=== PATIENT | male | born 2000 | race Hispanic/Latino ===

== ENCOUNTER 2018-03-04 03:13 | Emergency (ER) | payer OTHER, SELFPAY | END 2018-03-04 04:04 | disposition home or self-care (01) | LOC: MADERS 03:13 | DX: S39.012A Strain of muscle, fascia and tendon of lower back, initial encounter (principal); S66.912A Strain of unspecified muscle, fascia and tendon at wrist and hand level, left hand, initial encounter; V69.9XXA Occupant (driver) (passenger) of heavy transport vehicle injured in unspecified traffic accident, initial encounter | CPT/HCPCS: 99283 ==

== ENCOUNTER 2021-11-22 08:34 | Emergency (ER) | payer OTHER, SELFPAY ==
[~2021-11-22 08:34] MED LIST: Sodium Chloride 0.9% 1,000 ML BAG ONE; Sodium Chloride 0.9% 100 ML BAG ONE
[2021-11-22 09:17] LABS: #Basophils 0.1 thou/uL (0.0-0.2); #Eosinphils 0.1 thou/uL (0.0-0.7); #Lymphocytes 2.7 thou/uL (1.20-3.40); #Monocytes 0.5 thou/uL (0.11-0.59); #Neutrophils 3.9 thou/uL (1.40-6.50); %Basophils 1.6 % (0.0-1.0); %Eosinophils 1.2 % (0.0-10.0); %Monocytes 6.5 % (0.0-10.0); %Neutrophils 53.7 % (42.0-75.0); Hemoglobin 15.4 g/dL (14.0-18.0); Mean Corpuscular HGB CONC 32.7 g/dL (32.0-36.0); Mean Corpuscular Hemoglobin 27.2 pg (27.0-31.0); Mean Corpuscular Volume 83.4 fL (78.0-98.0); Mean Platelet Volume 6.7 fL (7.4-10.4); Platelet Count 366 thou/uL (130-400); RBC Distribution Width 11.2 % (11.5-14.5); Red Blood Cell (RBC) Count 5.66 mill/uL (4.70-6.10); White Blood Cell (WBC) Count 7.3 thou/uL (4.8-10.8)
[2021-11-22 09:37] LABS: ALT (SGPT) 37 U/L (8-55); AST (SGOT) 22 U/L (5-34); Albumin 4.7 g/dL (3.5-5.0); Alkaline Phosphatase 103 U/L (40-110); Anion Gap 14 mmol/L (10-20); BUN (Urea Nitrogen) 17 mg/dL (8.9-20.6); Bilirubin, Total 0.7 mg/dL (0.2-1.2); Calc. Creatinine Clearance 0 mL/min (70-130); Calcium 9.6 mg/dL (7.8-10.44); Carbon Dioxide 25 mmol/L (22-29); Chloride 103 mmol/L (98-107); Glucose 95 mg/dL (70-105); Magnesium 1.8 mg/dL (1.6-2.6); Sodium 138 mmol/L (136-145)
[2021-11-22 09:43] LABS: Base Excess-Venous 1.5 mmol/L (-2.0 to 3.0); Bicarbonate (HCO3v) 27.7 mmol/L (22.0-28.0); CO2 Tension (PvCO2) 47.8 mmHg (42.0-51.0); Calcium, Ionized 1.18 mmol/L (1.15-1.33); Chloride 103 mmol/L (98-107); Hemoglobin - Calc 16.2 g/dL (14.0-18.0); Potassium 3.8 mmol/L (3.5-5.1); Sodium 141 mmol/L (138-145); T. Carbon Dioxide 29.2 mmol/L (22.0-28.0); vO2 Saturation-calc 86.9 % (60.0-85.0)
[2021-11-22 09:53] LABS: Globulin 2.9 g/dL (2.4-3.5); Protein, Total 7.6 g/dL (6.0-8.3)
[2021-11-22] MEDS ORDERED: Ketorolac Tromethamine 30 MG/ML VIAL ONE (09:58)
[2021-11-22] MEDS ORDERED: Orphenadrine Citrate 60 MG/2 ML VIAL ONE (10:03)
[2021-11-22] MEDS ORDERED: Iopamidol 370 76% 125 ML VIAL FS ONE (12:08)
== END 2021-11-22 10:20 | disposition home or self-care (01) ==
LOC: MADERS 08:34
DX: M54.6 Pain in thoracic spine (principal); E66.9 Obesity, unspecified; Z68.45 Body mass index [BMI] 70 or greater, adult
CPT/HCPCS: 71275; 74174; 80053; 82330; 82803; 83735; 83880; 84484; 85014; 85025; 93005; 96372; 96374; J1885; J2360; J7050; Q9967